=== PATIENT | male | born 1995 | race Caucasian/White ===

== ENCOUNTER 2020-04-28 13:06 | Outpatient (REF) | payer OTHER, SELFPAY | END 2020-04-28 13:07 | disposition home or self-care (01) | LOC: HO.HMGCLDS 13:06 | PROVIDERS: Visit Provider Internal Medicine | DX: Z20.828 Contact with and (suspected) exposure to other viral communicable diseases (principal) | CPT/HCPCS: C9803; U0003 ==

== ENCOUNTER 2023-01-09 03:44 | Emergency (ER) | payer OTHER, SELFPAY ==
--- NOTE | ~2023-01-09 | CT_ITS ---
EXAMINATION: CT ABDOMEN AND PELVIS WITH CONTRAST CLINICAL INFORMATION: Abdominal pain. COMPARISON: None available. TECHNIQUE: Multidetector volumetric images were obtained from the superior aspect of the liver through the pubic symphysis following administration 85 mL of Omnipaque 350 intravenous contrast. Sagittal and coronal reformatted images were obtained on the technologist's workstation. Oral contrast: No This CT examination was performed using dose optimization techniques as appropriate, variously including the following: *Automated exposure control *Adjustment of mA and/or kV according to patient size (this includes techniques or standardized protocols for targeted exams where dose is matched to indication/reason for exam; i.e. extremities or head) *Use of iterative reconstruction technique DLP: 591.55 mGy-cm FINDINGS: LUNG BASES: The visualized lung bases are unremarkable. LIVER, GALLBLADDER, AND BILIARY TREE: The liver is normal in size, shape, and attenuation. No focal hepatic lesion or biliary ductal dilatation is present. The gallbladder is unremarkable with no evidence of radiopaque gallstones, gallbladder wall thickening, or obvious pericholecystic inflammatory changes. PANCREAS: Unremarkable. SPLEEN: Unremarkable. ADRENAL GLANDS: Unremarkable. KIDNEYS AND URETERS: The kidneys are normal in size, shape, and attenuation. No hydronephrosis, hydroureter, or calculi seen. No perinephric stranding. BLADDER: Unremarkable. GASTROINTESTINAL TRACT: There are fluid-filled distended/mildly dilated small bowel loops measuring up to 3.2 cm tapering to normal caliber [id number] small bowel. ABDOMINAL WALL: No significant hernia is appreciated. LYMPH NODES: Normal. VASCULAR: Unremarkable. PELVIC VISCERA: Unremarkable. OSSEOUS STRUCTURES: Unremarkable. CT/CT abdomen pelvis w IV con IMPRESSION: Distended/mildly dilated pqnrfemk-bl-[id number] small bowel loops tapering to more normal caliber small bowel distally. Finding suggests an enteritis. Early obstruction considered less likely. Correlation and follow up needed. Fleischner guidelines were followed.
[2023-01-09 03:53] VITALS: BP 129/81; PULSE 74; RESP 12; TEMP 36.4; O2SAT 98; BMI 28.6
[2023-01-09 04:07] LABS: MANUAL DIFF FLAG NO
--- NOTE | 2023-01-09 04:07 | PC.NURSE ---
Pt aox4. Reports abd pain that began yesterday and worsen throughout the night, 7/10, and feeling nauseas. Unknown etiology. Denies chest pain, sob, vomiting, or diarrhea. VSS. Labs drawn and sent. Pending urine sample. 20G IV line place on the R AC. Pt tolerated well. Pending lab results and physician jung.
[2023-01-09 04:09] LABS: Basophils Absolute Auto 0.1 X10*3/uL (0.0-0.2); Basophils Percent Auto 0.4 % (0-2); Eosinophils Absolute Auto 0.1 X10*3/uL (0.0-0.4); Hematocrit 48.5 % (42.0-52.0); Imm Gran Abs Auto 0.04 X10*3/uL (0.00-0.03); Imm Gran Pct Auto 0.3 % (0.0-0.4); Lymphocytes Percent Auto 16.8 % (20-40); Mean Corpuscular HGB Conc 35.1 g/dl (31.0-36.0); Mean Corpuscular Hemoglobin 29.8 pg (27.0-33.0); Mean Corpuscular Volume 85.1 fL (80.0-98.0); Mean Platelet Volume 9.3 fL (9.4-12.4); Monocytes Percent Auto 8.3 % (2-11); Neutrophils Absolute Auto 8.7 x10*3/uL (2.0-8.3); Neutrophils Percent Auto 73.2 % (45-73); Platelet Count 338 X10*3/uL (160-400); Red Cell Distribution Width 11.6 % (11.0-16.0); White Blood Count 11.9 X10*3/uL (4.8-10.8)
[2023-01-09 04:26] LABS: Alanine Aminotransferase 40 U/L (0-40); Alkaline Phosphatase 65 U/L (39-117); Anion Gap 15 (12-20); Aspartate Amino Transferase 37 U/L (5-37); Bilirubin Total 0.6 mg/dL (0.0-1.0); Blood Urea Nitrogen 20 mg/dL (9-16); Calcium 10.9 mg/dL (8.4-10.2); Carbon Dioxide 31 mmol/L (22-29); Chloride 99 mmol/L (96-108); Creatinine Clr Calc Pharmacy 115.4; Estimated Glomerular Filt Rate > 60; Glucose Random 98 mg/dL (60-115); Lipase 24 U/L (8-78); Sodium 141 mmol/L (135-145); Total Protein 8.9 g/dL (6.5-8.0)
--- NOTE | 2023-01-09 04:46 | ED.ABDPAIN ---
HPI - Abdominal Pain General Chief Complaint: Abdominal Pain Stated Complaint: abd pain Time Seen by Provider: 01/09/23 04:27 Source: patient Mode of arrival: ambulatory Limitations: no limitations History of Present Illness HPI narrative: 27-year-old male who presents emergency department for evaluation of sudden onset of abdominal pain that woke him up at midnight. The patient states that the pain is located diffusely throughout his abdomen but seems to be worse in the left side of his abdomen. He states the pain is a constant, cramping pain which comes in waves, the pain is 7/10 at its worst. The pain is worse with movement with breathing. Pain does not radiate to his back. This is 1st episode of this type of pain. He had associated nausea but no vomiting. He denied diarrhea, dark black stools or bloody stools. He denied frequency, urgency or dysuria. He denied fever, chills, chest pain or shortness of breath. Related Data Previous Rx's Medication Instructions Recorded levofloxacin 500 mg tablet 500 mg PO DAILY 7 days #7 tabs 01/09/23 metronidazole 500 mg tablet 500 mg PO TID 7 days #21 tabs 01/09/23 promethazine 25 mg tablet 25 mg PO Q6H PRN nausea and 01/09/23 vomiting #14 tabs Allergies Allergy/AdvReac Type Severity Reaction Status Date / Time No Known Allergies Allergy Verified 01/09/23 03:55 Review of Systems Review of Systems Yes all other systems are reviewed and are negative [facility] Past Medical History [facility] Narrative: Past medical history: None. Past surgical history: None. Social history: He denies tobacco use, he occasionally drinks alcohol but has had no alcohol to drink in over a week, he smokes marijuana. Social History Social History Alcohol intake: current Alcohol intake frequency: a few times a week Alcohol type: hard liquor Smoked in Last 30 Days: No Use of substances other than those prescribed or required for medical reasons: No Substance Use Type: Marijuana Advance Directives: No Advance Directives Information Provided: Yes Physical Exam ED Vital Signs: Vital Signs - 24 hr 01/09/23 03:53 01/09/23 05:59 Temperature 97.5 F 98.3 F Pulse Rate 74 68 Respiratory Rate 12 16 Blood Pressure 129/81 115/53 L Pulse Oximetry 98 98 Oxygen Delivery Method Room Air Room Air BMI result Body Mass Index 28.6 Vital signs were normal Exam: General: Awake, alert in no distress Head: Normocephalic, atraumatic EENT: PERRL, Lids normal, sclera normal, conjunctiva normal, nose normal , ears normal, throat without erythema or exudates Neck: Supple, no adenopathy, trachea midline and nontender Lung: breath sounds symmetric, no wheezing, rales or rhonchi Chest: symmetric movement, nontender Heart: regular rate and rhythm, normal S1, S2 no murmurs or rubs Abdomen: soft, patient has normoactive bowel sounds, the patient has mild diffuse tenderness with moderate left upper and left lower quadrant tenderness, there is no rebound, no voluntary or involuntary guarding Back: no vertebral tenderness, no CVAT Extremities: no deformities, moves all extremities symmetrically Skin: no rashes, no lesion, normal color and warmth Neuro: Awake, alert, oriented, normal speech, cranial nerves intact, moves all extremities symmetrically Psych: Pleasant, cooperative Medical Decision Making Medical Decision Making MDM Narrative: 27-year-old male who presents emergency department for evaluation of sudden onset of diffuse abdominal pain with increased pain in the left lower quadrant, the pain started at midnight, the pain is been constant but waxes and wanes in intensity. Patient's pain is 7/10 at its worst. Patient's vital signs were normal. Examination did reveal mild diffuse tenderness with increased tenderness with palpation of the left upper and left lower quadrant. The following evaluation was ordered: CBC, CMP, lipase, urinalysis, CT scan of the abdomen pelvis with IV contrast. Patient was treated with normal saline IV x1 L, Zofran 4 mg IV for his nausea and Toradol 15 mg IV 1st pain. 0728 Patient's laboratory evaluation was unremarkable. 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 The patient will be treated with Levaquin 500 mg daily for 5 days and metronidazole 500 mg 3 times a day for 5 days. He is advised to take Tylenol, ibuprofen and he was prescribed Phenergan 25 mg q.6 hours as needed for nausea and vomiting. Was given printed and verbal instructions and discharged home Differential Diagnosis Differential Diagnoses: The differential diagnosis associated with the presentation includes Differential diagnosis includes was not limited to pancreatitis, appendicitis, cholecystitis, diverticulitis, perforation, kidney stone, ureteral stone Admission/Observation Consideration of admission/observation: Escalation of care including admission/observation considered Lab Data MDM Lab Attestation statement: I reviewed the patient's lab results. My independent interpretation the patient's laboratory evaluation is as follows: WBC elevated 11,900. Bicarb elevated 31. BUN elevated 20. LFTs normal. Lipase normal. 01/09/23 04:03 01/09/23 04:03 Labs: Lab Results 01/09/23 01/09/23 01/09/23 Range/Units 04:03 04:03 06:26 WBC 11.9 H (4.8-10.8) X10*3/uL RBC 5.70 (4.60-5.80) X10*6/uL Hgb 17.0 (14.0-18.0) g/dl Hct 48.5 (42.0-52.0) % MCV 85.1 (80.0-98.0) fL MCH 29.8 (27.0-33.0) pg MCHC 35.1 (31.0-36.0) g/dl RDW 11.6 (11.0-16.0) % Plt Count 338 (160-400) X10*3/uL MPV 9.3 L (9.4-12.4) fL Immature Gran % (Auto) 0.3 (0.0-0.4) % Neut % (Auto) 73.2 H (45-73) % Lymph % (Auto) 16.8 L (20-40) % [place] % (Auto) 8.3 (2-11) % Eos % (Auto) 1.0 (0-4) % Baso % (Auto) 0.4 (0-2) % Lymph # (Auto) 2.0 (1.2-4.9) X10*3/uL [place] # (Auto) 1.0 (0.1-1.2) X10*3/uL Eos # (Auto) 0.1 (0.0-0.4) X10*3/uL Baso # (Auto) 0.1 (0.0-0.2) X10*3/uL Abs Immat Gran (auto) 0.04 H (0.00-0.03) X10*3/uL Absolute Neuts (auto) 8.7 H (2.0-8.3) x10*3/uL Absolute Nucleated RBC 0.000 (0.0-0.012) X10*3/uL Nucleated RBC % (auto) 0.0 (0.0-0.2) /100WBC Sodium 141 (135-145) mmol/L Potassium 4.0 (3.3-5.1) mmol/L Chloride 99 (96-108) mmol/L Carbon Dioxide 31 H (22-29) mmol/L Anion Gap 15 (12-20) BUN 20 H (9-16) mg/dL Creatinine 1.13 (0.5-1.4) mg/dL Estim Creat Clear Calc 115.4 Estimated GFR > 60 Random Glucose 98 (60-115) mg/dL Calcium 10.9 H (8.4-10.2) mg/dL Total Bilirubin 0.6 (0.0-1.0) mg/dL AST 37 (5-37) U/L ALT 40 (0-40) U/L Alkaline Phosphatase 65 (39-117) U/L Total Protein 8.9 H (6.5-8.0) g/dL Albumin 5.0 (3.5-5.0) g/dL Lipase 24 (8-78) U/L Urine Color Yellow Urine Appearance Clear Urine pH 7.0 (5.0-9.0) Ur Specific [place] >= 1.030 H (1.005-1.025) Urine Protein Negative (Neg-Trace) mg/dL Urine Glucose (UA) Negative (Negative) mg/dL Urine Ketones Negative (Negative) mg/dL Urine Blood Negative (Negative) Urine Nitrite Negative (Negative) Ur Leukocyte Esterase Negative (Negative) Radiology Impression Discussion of test interpretation with radiology: I have reviewed the radiologist's reading. Radiologist Impression: CT abdomen pelvis w IV con IMPRESSION: Distended/mildly dilated [id number] small bowel loops tapering to more normal caliber small bowel distally. Finding suggests an enteritis. Early obstruction considered less likely. Correlation and follow up needed. Fleischner guidelines were followed. Dictated By:Eduardo Milner Medications Administered Discontinued Medications Generic Name Dose Route Start Last Admin Trade Name Freq PRN Reason Stop Dose Admin Sodium Chloride 1,000 mls @ 999 mls/hr 01/09/23 04:45 01/09/23 06:21 Ns IV 01/09/23 05:45 Infused .Q1H1M STA Infusion Iohexol 85 ml 01/09/23 05:20 01/09/23 05:21 Iohexol 350 Mg/Ml 100 Ml Infus..Btl IV 01/09/23 05:21 85 ml ONCE ONE Administration Ketorolac Tromethamine 15 mg 01/09/23 04:45 01/09/23 04:55 Ketorolac Tromethamine 15 Mg/Ml Vial IVPUSH 01/09/23 04:46 15 mg ONCE STA Administration Ondansetron HCl 4 mg 01/09/23 04:45 01/09/23 04:56 Ondansetron Hcl 4 Mg/2 Ml Vial IVPUSH 01/09/23 04:46 4 mg ONCE ONE Administration Discharge Plan Discharge Clinical Impression: Enteritis Abdominal pain Qualifiers: Abdominal location: generalized Qualified Code(s): R10.84 - Generalized abdominal pain Patient Disposition: Home, Self-Care Instructions: Enteritis (ED) Additional Instructions: Your blood work was normal except for slight elevation in her white blood cell count The CT scan of your abdomen pelvis revealed mildly distended loops of small bowel which is consistent with inflammation of the small bowel (enteritis). I am treating you with the following antibiotics: Levaquin 500 mg daily for 7 days. Metronidazole 500 mg 3 times a day for 7 days. Take ibuprofen 200 mg pills, 2 pills every 6 hours as needed for pain or fever. Take Tylenol (acetaminophen) 500 mg pills, 2 pills every 6 hours as needed for pain or fever. Take this Phenergan 25 mg pills, 1 pill dissolved in your mouth every 8 hours as needed for nausea and vomiting. Follow-up with your doctor in 2 days. Please return to the emergency department if your symptoms get worse or if you develop any symptoms that are concerning to you. Prescriptions: New metronidazole 500 mg tablet 500 mg PO TID 7 Days Qty: 21 0RF levofloxacin 500 mg tablet 500 mg PO DAILY 7 Days Qty: 7 0RF promethazine 25 mg tablet 25 mg PO Q6H PRN (Reason: nausea and vomiting) Qty: 14 0RF
[2023-01-09] MEDS: Ketorolac Tromethamine 15 MG/ML VIAL IVPUSH (04:55)
[2023-01-09] MEDS: 0.9 % Sodium Chloride 1,000 ML 999 ML IV (04:56)
[2023-01-09] MEDS: ondansetron HCL 4 MG/2 ML VIAL IVPUSH (04:56)
--- NOTE | 2023-01-09 04:59 | PC.NURSE ---
Medicated as scheduled. Pt tolerated well. Pending CT-scan. Pt aware of plan of care.
[2023-01-09] MEDS: iohexoL 350 MG/ML 100 ML INFUS..BTL 85 ML IV (05:21)
[2023-01-09 05:59] VITALS: BP 115/53; PULSE 68; RESP 16; TEMP 36.8; O2SAT 98
[2023-01-09 06:33] LABS: Appearance Urine Clear; Color Urine Yellow; Glucose Urine UA Negative (Negative); Leukocyte Esterase Urine Negative (Negative); Nitrite Urine Negative (Negative); Specific Gravity - Urine >= 1.030 (1.005-1.025); Urine Blood Negative (Negative); Urine Ketones Negative (Negative); Urine Protein Negative (Neg-Trace)
[2023-01-09 08:08] VITALS: BP 116/66; PULSE 71; RESP 16; TEMP 36.8; O2SAT 96
[2023-01-09] MEDS: metroNIDAZOLE 500 MG TABLET PO (08:10)
[2023-01-09] MEDS: levoFLOXacin 500 MG TABLET PO (08:10)
== END 2023-01-09 08:14 | disposition home or self-care (01) ==
PROVIDERS: Emergency Provider Emergency Medicine Emergency Medical Services
DX: K52.9 Noninfective gastroenteritis and colitis, unspecified (principal); R10.84 Generalized abdominal pain; Z79.899 Other long term (current) drug therapy
CPT/HCPCS: 36415; 74177; 80053; 81003; 83690; 85025; 96361; 96374; 96375; 99284; 99285; J1885; J2405; Q9967

== ENCOUNTER 2024-07-20 13:37 | Emergency (ER) | payer OTHER, SELFPAY ==
[2024-07-20 14:39] VITALS: BP 126/89; PULSE 56; RESP 20; TEMP 37.2; O2SAT 99; BMI 30.5
--- NOTE | 2024-07-20 14:45 | ED_ITS ---
HPI - Eye Problem General Chief complaint: Eye Problems Stated complaint: Foreign Body In R Eye Time Seen by Provider: 07/20/24 14:45 Source: patient and RN notes reviewed Mode of arrival: ambulatory Limitations: no limitations History of Present Illness ED Provider: Kezia Alcala PA-C HPI Narrative: This is a 29-year-old male who presents emergency department with complaints of foreign body to right eyelid. Patient states that he was cutting cast iron and feels as though something went into his right eye. He reports that he believes that the foreign body is under his right eyelid. He was any vision changes. No severe eye pain. He reports his tetanus is up-to-date. He does not wear contact lenses. No other complaints or concerns at this time. MD chief complaint: eye injury Onset (ago): hour(s) Onset description: sudden Duration: constant Location: right eye Place: work Mechanism: direct trauma Associated symptoms: none Treatments Prior to Arrival: none Related Data Patient tetanus UTD: Yes Previous Rx's ?Medication ?Instructions ?Recorded levofloxacin 500 mg tablet 500 mg PO DAILY 7 days #7 tabs 01/09/23 metronidazole 500 mg tablet 500 mg PO TID 7 days #21 tabs 01/09/23 promethazine 25 mg tablet 25 mg PO Q6H PRN nausea and 01/09/23 vomiting #14 tabs erythromycin 5 mg/gram (0.5 %) eye 0.5 inch ophthalmic (eye) QID #3.5 07/20/24 ointment grams Allergies Allergy/AdvReac Type Severity Reaction Status Date / Time No Known Allergies Allergy Verified 07/20/24 14:41 Review of Systems Review of Systems: Yes all other systems are reviewed and are negative [facility] Social History Social History Alcohol intake: current Alcohol intake frequency: a few times a week Alcohol type: hard liquor Substance Use Type: Marijuana Advance Directives: No Advance Directives Information Provided: No Do you have a plan to hurt others: No Plan Physical Exam Vital Signs: Vital Signs: Last Vital Signs Temp 98.9 F 07/20/24 15:48 Pulse 56 07/20/24 15:48 Resp 20 07/20/24 15:48 BP 126/89 07/20/24 15:48 Pulse Ox 99 07/20/24 15:48 O2 Del Method Room Air 07/20/24 15:48 BMI result Body Mass Index 30.5 Const: Other: General: Awake, alert, and oriented X3. No acute distress. HEENT: Right eye, with no obvious foreign body, right eyelid was everted, punctate foreign body noted, this was removed using a cotton swab. No significant fluorescein uptake. Negative Amanda sign. No corneal abrasion, laceration noted. CVS: Normal heart rate and rhythm. Pulses normal. Respiratory: No respiratory distress Skin: Warm, dry, no rashes noted to exposed skin. Normal skin color. Normal skin turgor. Extremities: Normal to inspection Neuro: Oriented X 3. No motor deficit. No sensory deficit. Medical Decision Making Medical Decision Making [facility] Narrative: This is a 29-year-old male who presents emergency department for foreign body in right eyelid. 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 I was able to jorge the eyelid and noticed a punctate foreign body. This was removed using a cotton swab. Patient symptoms immediately improved. Fluorescein stain was performed, no fluorescein uptake seen. No evidence of corneal abrasion. No evidence of globe rupture, negative Amanda sign. His tetanus is up-to-date. Discharged on erythromycin for infection prevention. Patient given strict return precautions. Patient stable for discharge. Differential Diagnosis Differential Diagnoses: The differential diagnosis associated with the presentation includes Foreign body, corneal abrasion, conjunctivitis Discharge Plan Discharge Clinical Impression: Acute foreign body of eyelid Patient Disposition: Still a Patient Instructions: Corneal Abrasion (ED) Additional Instructions: You were seen in the emergency department due to a foreign bodies to your right eyelid. We are able to remove your foreign body successfully. You do have some slight irritation to your eye, no evidence of any abrasions noted to your eye. Please use erythromycin ointment as prescribed, finish the entire course, this prevents infection. Use 4 times a day for 7 days. If any new or worsening symptoms occur including but not limited to worsening eye pain, changes in vision please seek emergent care. I am referring you to an seo marketing specialist if you continue to have symptoms in your eye for the next 2-3 days, call to make an appointment. Prescriptions: New erythromycin 5 mg/gram (0.5 %) ointment 0.5 inch ophthalmic (eye) QID Qty: 3.5 0RF No Action metronidazole 500 mg tablet 500 mg PO TID 7 Days Qty: 21 0RF levofloxacin 500 mg tablet 500 mg PO DAILY 7 Days Qty: 7 0RF promethazine 25 mg tablet 25 mg PO Q6H PRN (Reason: nausea and vomiting) Qty: 14 0RF Referrals: Jonathan Gross [Physician] - Stand Alone Forms: Work/School Release Interventions: ED Discharge Assessment Last Done: 07/20/24 15:48 Discharge Date/Time: 07/20/24 15:48 Print Language: Faroese
[2024-07-20 15:48] VITALS: BP 126/89; PULSE 56; RESP 20; TEMP 37.2; O2SAT 99
--- OUTSIDE RECORDS SUMMARY | 2024-07-20 16:13 | XMS_ITS | Encounter Summary ---
Author Organization [facility] Address [address] [place] [phone] Phone Care Team Providers Care Technical Intern Name Role Phone Mejia Rene MD Primary Care Provider [phone] Encounter Details Date Type Department Care Team (Late st Contact Info) Description 01/08/2017 Conversion Encounter [facility] - [address], [address] [place] [address] Mejia Rene MD [address] [place] [address] Social History Tobacco Use Types Packs/Day Years Used Date Smoking Tobacco: Never Assessed Sex and Gender Information Value Date Recorded Sex Assigned at Not on file Legal Sex Male 10:45 PM EST Gender Identity Not on file Sexual Orientation Not on file documented as of this encounter Plan of Treatment Not on file documented as of this encounter Visit Diagnoses Not on filedocumented in this encounter Care Teams Technical Intern Relationship Specialty Start Date End Date Mejia Rene MD [address] [place] [address] PCP - General 07/23/16 12/18/20 documented as of this encounter
--- OUTSIDE RECORDS SUMMARY | 2024-07-20 16:13 | XMS_ITS | Clinical Summary ---
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 Name Role Phone Unavailable Primary Care Provider Unavailabl e Immunizations Immunization Administration Dates Next Due DTaP 01/19/2001, 8,1996,07/13,1996 HPV, Quadrivalent 09/04/2012,04/13/2012,01/04/20 12 Hep B, ped/adol 1996,1996,1996 Hib (PRP-T) 1996, 7,1996,05/12 Influenza 03/21/2005 Influenza, injectable, quadr ivalent, preservative free 04/12/2013 Influenza, injectable, trivalent 04/13/2012 Influenza, intranasal, quadrivalent 06/14/2014 MMR 01/19/2001,08/01/1997 Meningococcal Conj (Menactra) MCV4P 04/12/2013,1 OPV 01/19/2001, 8,1996,07/13 Tdap 03/08/2008 Varicella 10/02/2010,11/19/1999 Family History Relation Name Status Comments Father Father: Adoptiv e father, Ceci Luther. Biologic father, Yoseph Maire does not have contact w biologic father. Mother Mother: Joelle martinez Other 1 Adoptive father , Ceci Luther. Biologic father, Yoseph Marie does not have contact w biologic father. Other 2 Joelle Luther Social History Tobacco Use Types Packs/Day Years Used Date Smoking Tobacco: Never Assessed Sex and Gender Information Value Date Recorded Sex Assigned at Not on file Legal Sex Male 10:45 PM EST Gender Identity Not on file Sexual Orientation Not on file Last Filed Vital Signs Vital Sign Reading Time Taken Comments Blood Pressure 103/55 04/11/2016 12:00 AM EST Pulse 61 04/11/2016 12:00 AM EST Temperature 37.4 ??C (99.3 ??F) 02/22/2013 12:00 AM E DT Respiratory Rate - - Oxygen Saturation - - Inhaled Oxygen Concentration - - Weight 92.8 kg (204 lb 9.7 oz) 04/11/2016 12:00 AM EST Height 179.7 cm (5' 10.75 ) 04/11/2016 12:00 AM EST Body Mass Index 28.74 04/11/2016 12:00 AM EST Plan of Treatment Health Maintenance Due Date Last Done Comments Hepatitis B Vaccines (4 of 4 - 4-dose series) 1996 1996, 1996, 1996 DTaP,Tdap,and Td Vaccines (7 - Td or Tdap) 03/08/2018 03/08/2008, 01/19/2001, 05/22/1998, Additional history exists Influenza Vaccines (#1) 2024 06/14/19 15, 04/12/2013, 04/13/2012, Additional history exists COVID-19 Vaccine ( season) 2024 HIB Vaccines Aged Out 1996, 07/03, 1996, Additional history exists No longer eligible based on patient's age to complete this topic IPV Vaccines Completed 01/19/2001, 05/03, 1996, Additional history exists MMR Vaccines Completed 01/19/2001, 08/01/1997 Varicella Vaccines Completed 10/02/2010, 11/19/1999 HPV Vaccines Completed 09/04/2012, 04/02, 01/04/2012 Meningococcal Vaccine Completed 04/12/2013, 008 Hepatitis A Vaccines Aged Out No long er eligible based on patient's age to complete this topic Men B Vaccine Aged Out No longer elig ible based on patient's age to complete this topic Pneumococcal Vaccine Aged Out No long er eligible based on patient's age to complete this topic
== END 2024-07-20 15:48 | disposition still patient (30) ==
PROVIDERS: Emergency Provider Emergency Medicine Emergency Medical Services
DX: H02.813 Retained foreign body in right eye, unspecified eyelid (principal); Z18.89 Other specified retained foreign body fragments; H57.11 Ocular pain, right eye
CPT/HCPCS: 99282; 99283